=== PATIENT | male | born 1945 | race Caucasian/White ===

== ENCOUNTER → 2020-05-17 10:07 | Outpatient (BNVA) | payer MEDICARE, OTHER, SELFPAY | PROVIDERS: PCP Family Medicine; Visit Provider Nurse Practitioner | DX: G93.41 Metabolic encephalopathy (principal); I10 Essential (primary) hypertension; Z86.73 Personal history of transient ischemic attack (TIA), and cerebral infarction without residual deficits | CPT/HCPCS: 99205 ==

== ENCOUNTER 2020-09-08 09:45 | Outpatient (CLI) | payer MEDICARE, SELFPAY ==
--- NOTE | 2020-09-08 09:54 | CT_ITS ---
WS: [id number] CT LUMBAR SPINE, noncontrast. HISTORY: LOW BACK PAIN TECHNIQUE: Contiguous 2.5 mm axial imaging are performed. Sagittal and coronal reformats are submitte d and reviewed. All CT scans at [facility] use at least one of these dose optimization te chniques: automated exposure control; mA and/or kV adjustment per patient size (includes targeted exa ms where dose is matched to clinical indication); or iterative reconstruction. IV contrast: None DLP: 2046.18 mGycm COMPARISON: None available. Normal posterior lumbar alignment. No fracture. Moderate-sized endplate osteophytes throughout the th oracolumbar junction and small osteophytes in the lower lumbar spine. Very mild disc space narrowing and desiccation. No pars defects. L1-2: Facet arthritis. No stenosis. L2-3: Facet arthritis with no stenosis. L3-4: Mild annular disc bulging with moderate ligamentum flavum and facet arthritis. No significant s tenosis. L4-5: Mild annular disc bulging and osteophytic ridging. Moderate ligamentum flavum disease and facet arthritis. Increased air within the LEFT facet joint. Mild central and subarticular foraminal stenos is. L5-S1: Mild annular disc bulging. Disc contacts but does not displace the S1 nerve roots. Moderate bi lateral facet joint arthritis. Mild osseous fragmentation of the facet joints with increased air in t he RIGHT facet joint. There is a small osteophyte from the posterior inferior RIGHT vertebral body co ntacting but not displacing the RIGHT L5 nerve root. Fusion involving the RIGHT SI joint. CT/CT lumbar spine wo con* [id number] IMPRESSION: 1. 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 2. RIGHT SI joint ankylosis. 3. Mild central and bilateral subarticular foraminal stenosis at L4-5. 4. Osteophyte contacts the exiting RIGHT L5 nerve root but no displacement.
--- NOTE | 2020-09-08 09:54 | XR_ITS ---
WS: [id number] LATERAL LUMBAR SPINE: 3 view. Lateral radiographs are performed in upright neutral, flexion and extension to the patient's toleranc e. HISTORY: LOW BACK PAIN COMPARISON: None available. Normal posterior lumbar alignment. Mild disc space narrowing. Moderate size osteophytes with partial anterior bridging at the thoracolumbar junction and throughout the remaining lumbar spine. Moderate f acet joint arthritis at L4-5 and L5-S1. No fracture. XR/XR lumbar spine f/e only [id number] IMPRESSION: 1. No lumbar spine instability. 2. Moderate facet joint arthritis at L4-5 and L5-S1.
== END 2020-09-08 09:46 | disposition home or self-care (01) ==
LOC: RADWPI 09:49
PROVIDERS: PCP Family Medicine; Visit Provider Nurse Practitioner
DX: M54.5 Low back pain (principal); M47.816 Spondylosis without myelopathy or radiculopathy, lumbar region; M47.817 Spondylosis without myelopathy or radiculopathy, lumbosacral region; M43.28 Fusion of spine, sacral and sacrococcygeal region; M25.78 Osteophyte, vertebrae; M48.061 Spinal stenosis, lumbar region without neurogenic claudication
CPT/HCPCS: 72120; 72131